=== PATIENT | female | born 1970 | race Caucasian/White ===

== ENCOUNTER 2018-10-15 05:40 | Day surgery (SDC) | payer OTHER ==
[2018-10-15] MEDS ORDERED: PERCOCET 5-3251 EACH PO (08:09)
[2018-10-15] MEDS ORDERED: KETOROLAC TROME10 MG PO (08:11)
== END 2018-10-15 13:50 | disposition home or self-care (01) ==
LOC: CIR.AMB 05:40
DX: K60.1 Chronic anal fissure (principal); K60.3 Anal fistula; K64.8 Other hemorrhoids